=== PATIENT | female | born 1955 | race Caucasian/White ===

== ENCOUNTER 2020-01-30 14:35 | Outpatient (CLI) | payer OTHER ==
[2020-01-30] MEDS ORDERED: OMEP-50 PO (15:30)
[2020-01-30] MEDS ORDERED: IBUP-1985 PO (15:30)
[2020-01-30 16:07] LABS: BASOPHILS # (AUTO) 0.1 X10'3 (0-0.2); BASOPHILS % (AUTO) 0.8 % (0-1); EOSINOPHILS # (AUTO) 0.1 X10'3 (0-0.9); EOSINOPHILS % (AUTO) 0.4 % (0-6); LYMPHOCYTES # (AUTO) 2.6 X10'3 (1.1-4.8); LYMPHOCYTES % (AUTO) 19.2 % (21-51); MEAN CORPUSCULAR HEMOGLOBIN 32.3 PG (27.0-31.0); MEAN CORPUSCULAR HGB CONC 33.6 g/dL (33.0-36.5); MEAN CORPUSCULAR VOLUME 95.9 FL (78-98); MEAN PLATELET VOLUME 9.7 FL (7.4-10.4); MONOCYTES # (AUTO) 0.8 X10'3 (0-0.9); MONOCYTES % (AUTO) 5.9 % (2-12); NEUTROPHILS # (AUTO) 9.9 X10'3 (1.8-7.7); NEUTROPHILS % (AUTO) 73.7 % (42-75); PRE OP HEMATOCRIT 50.1 % (35.0-45.0); PRE OP HEMOGLOBIN 16.8 g/dL (12.0-16.0); PRE OP PLATELET COUNT 296 X10'3 (140-440); RED BLOOD COUNT 5.22 X10'6 (4.20-5.60); RED CELL DISTRIBUTION WIDTH 13.3 % (11.5-14.5)
[2020-01-30 16:16] LABS: ALBUMIN 2.4 G/DL (3.4-5.0); ALBUMIN/GLOBULIN RATIO 0.5 (1.1-1.5); ALKALINE PHOSPHATASE 98 IU/L (46-116); BLOOD UREA NITROGEN 12 MG/DL (7-18); CALCIUM 8.7 MG/DL (8.5-10.1); CHLORIDE 103 MMOL/L (99-107); CREATININE 0.92 MG/DL (0.40-0.90); PRE OP ALT 39 U/L (30-65); PRE OP ANION GAP 6 (8-16); PRE OP AST 16 U/L (10-37); PRE OP BILIRUB, TOTAL 0.3 MG/DL (0.0-1.0); PRE OP GLUCOSE 110 MG/DL (70-104); PRE OP PROTIME 10.3 SECONDS (9.0-12.0); PRE OP SODIUM 141 MMOL/L (135-145); TOTAL CARBON DIOXIDE 32.5 MMOL/L (24-32); TOTAL PROTEIN 7.6 G/DL (6.4-8.2); eGFR 61 ML/MIN
[2020-01-31] MEDS ORDERED: ASPI81TA52 PO (15:32)
[2020-01-31] MEDS ORDERED: DILT120C20 PO (15:32)
== END 2020-01-30 23:59 | disposition home or self-care (01) ==
LOC: PRE-OP 14:35 → EDSTATUS 02-08 10:15
PROVIDERS: ATTEND Orthopaedic Surgery
DX: Z01.812 Encounter for preprocedural laboratory examination (principal); M17.12 Unilateral primary osteoarthritis, left knee; I48.91 Unspecified atrial fibrillation; Z20.828 Contact with and (suspected) exposure to other viral communicable diseases
CPT/HCPCS: 36415; 80053; 85025; 85610; 85730; 87081; 87635; 93005

== ENCOUNTER 2020-01-30 15:56 | Inpatient (IN) | payer BC, OTHER ==
[~2020-01-30] VITALS: Ht 177.8 cm; Wt 121.8 kg
[~2020-01-30 15:56] MED LIST: IBUP-1985 PO; OMEP-50 PO
[2020-01-30] MEDS ORDERED: diltiazem 5mg/ml 5ml inj. IV ONE (16:05)
[2020-01-30] MEDS ORDERED: normal saline 1000ML IV soln IVB ONE (16:10)
[2020-01-30 16:27] LABS: BASOPHILS # (AUTO) 0.1 X10'3 (0-0.2); EOSINOPHILS # (AUTO) 0.1 X10'3 (0-0.9); EOSINOPHILS % (AUTO) 0.7 % (0-6); HEMATOCRIT 49.7 % (35.0-45.0); HEMOGLOBIN 16.6 g/dl (12.0-16.0); LYMPHOCYTES # (AUTO) 2.7 X10'3 (1.1-4.8); LYMPHOCYTES % (AUTO) 18.6 % (21-51); MEAN CORPUSCULAR HGB CONC 33.5 g/dL (33.0-36.5); MEAN CORPUSCULAR VOLUME 95.5 FL (78-98); MEAN PLATELET VOLUME 9.9 FL (7.4-10.4); MONOCYTES % (AUTO) 6.8 % (2-12); NEUTROPHILS # (AUTO) 10.7 X10'3 (1.8-7.7); NEUTROPHILS % (AUTO) 72.9 % (42-75); PLATELET COUNT 304 X10'3 (140-440); RED CELL DISTRIBUTION WIDTH 13.4 % (11.5-14.5); WHITE BLOOD COUNT 14.6 X10'3 (4.5-11.0)
[2020-01-30] MEDS ORDERED: etomidate 2mg/ml inj. IV ONE (16:40)
[2020-01-30] MEDS ORDERED: LORazepam 2 mg/ml vial IV ONE (16:40)
[2020-01-30 16:45] LABS: ALANINE AMINOTRANSFERASE 40 U/L (12-78); ALBUMIN 2.4 G/DL (3.4-5.0); ALBUMIN/GLOBULIN RATIO 0.5 (1.1-1.5); ALKALINE PHOSPHATASE 96 IU/L (46-116); ANION GAP 5 (8-16); ASPARTATE AMINO TRANSFERASE 21 U/L (10-37); BILIRUBIN,TOTAL 0.3 MG/DL (0.1-1.0); BLOOD UREA NITROGEN 13 MG/DL (7-18); BUN/CREATININE RATIO 14.3 (6.6-38.0); CALCIUM 8.7 MG/DL (8.5-10.1); CHLORIDE 103 MMOL/L (99-107); CREATININE 0.91 MG/DL (0.40-0.90); GLUCOSE 109 MG/DL (70-104); POTASSIUM 3.9 MMOL/L (3.5-5.1); SODIUM 140 MMOL/L (135-145); TOTAL CARBON DIOXIDE 32.2 MMOL/L (24-32); TOTAL PROTEIN 7.6 G/DL (6.4-8.2); eGFR 62 ML/MIN
[2020-01-30] MEDS ORDERED: fentaNYL/PF 50MCG/1 ML 2ML syringe IV ONE (17:00)
[2020-01-30] MEDS ORDERED: diltiazem-D5W 125mg/125ml 125 ML IV SCH (17:25)
[2020-01-30] MEDS ORDERED: diltiazem-NS 100mg/100ml 100 ML IV SCH (17:32)
[2020-01-30] MEDS ORDERED: ondansetron/PF 4mg/2ml inj IV ONE (17:40)
[2020-01-30] MEDS ORDERED: ondansetron/PF 4mg/2ml inj IV PRN (19:20)
[2020-01-30] MEDS ORDERED: acetaminophen 325mg tablet PO PRN ×2 (19:20)
[2020-01-30] MEDS ORDERED: HYDROcodone/acetaminophen 5mg/325mg tablet PO PRN (19:20)
[2020-01-30] MEDS ORDERED: magnesium hydroxide 30ml (MOM) UD suspension PO PRN (19:20)
[2020-01-30] MEDS ORDERED: mag hydrox/Alum hydrox/simeth 30ml oral suspension PO PRN (19:20)
[2020-01-30] MEDS ORDERED: HYDROcodone/acetaminophen 10/325mg tab PO PRN (19:20)
[2020-01-30] MEDS ORDERED: morphine 2 MG/ML inj. syringe IV PRN ×2 (19:20)
[2020-01-30] MEDS ORDERED: amiodarone 150mg/dext, iso-os 100 ML IV ONE (19:30)
--- NOTE | 2020-01-30 20:27 | NUR ---
PT HAS ROOM ASSIGNMENT. PT CURRENTLY DENIES ANY SYPTOMS. dILTIAZEM GTT Restarted after being held for 25 minutes (pt up to BR). Dr Luz Maria cervantes MD UPDATED TAHT HR now 120-130 WHILE OFF DILTIAZEM. VERBAL RECEIVED TO DC amioderone gtt at this time AND CONTINUE DILTIAZEM.
[2020-01-30 21:00] VITALS: BP 117/101
[2020-01-30 22:00] VITALS: BP 140/79
[2020-01-31] VITALS (15 sets, daily range): BP systolic 103–133; BP diastolic 57–94
[2020-01-31 05:10] LABS: BASOPHILS # (AUTO) 0.1 X10'3 (0-0.2); BASOPHILS % (AUTO) 0.9 % (0-1); EOSINOPHILS # (AUTO) 0.1 X10'3 (0-0.9); EOSINOPHILS % (AUTO) 0.7 % (0-6); HEMATOCRIT 44.9 % (35.0-45.0); HEMOGLOBIN 14.8 g/dl (12.0-16.0); LYMPHOCYTES # (AUTO) 2.8 X10'3 (1.1-4.8); LYMPHOCYTES % (AUTO) 24.5 % (21-51); MEAN CORPUSCULAR HEMOGLOBIN 32.3 PG (27.0-31.0); MEAN CORPUSCULAR VOLUME 97.8 FL (78-98); MEAN PLATELET VOLUME 10.1 FL (7.4-10.4); MONOCYTES # (AUTO) 0.6 X10'3 (0-0.9); MONOCYTES % (AUTO) 5.2 % (2-12); NEUTROPHILS # (AUTO) 7.7 X10'3 (1.8-7.7); NEUTROPHILS % (AUTO) 68.7 % (42-75); PLATELET COUNT 252 X10'3 (140-440); RED BLOOD COUNT 4.58 X10'6 (4.20-5.60); RED CELL DISTRIBUTION WIDTH 13.9 % (11.5-14.5); WHITE BLOOD COUNT 11.2 X10'3 (4.5-11.0)
[2020-01-31 05:18] LABS: ALBUMIN 2.1 G/DL (3.4-5.0); ANION GAP 4 (8-16); BLOOD UREA NITROGEN 15 MG/DL (7-18); CHLORIDE 107 MMOL/L (99-107); CREATININE 0.79 MG/DL (0.40-0.90); GLUCOSE 106 MG/DL (70-104); POTASSIUM 4.2 MMOL/L (3.5-5.1); SODIUM 142 MMOL/L (135-145); TOTAL CARBON DIOXIDE 31.3 MMOL/L (24-32); eGFR 73 ML/MIN
[2020-01-31] MEDS ORDERED: regadenoson 0.4mg/5ml syringe IV PRN (05:30)
[2020-01-31] MEDS ORDERED: nitroGLYCERIN 0.4mg SUBLingual tab SL PRN ×2 (05:30→05:35)
[2020-01-31] MEDS ORDERED: metoprolol tartrate 1mg/ml inj IV PRN ×2 (05:30→05:35)
[2020-01-31] MEDS ORDERED: aminophylline 250mg/10ml inj. IV PRN ×2 (05:30→05:35)
[2020-01-31] MEDS ORDERED: regadenoson 0.4mg/5ml syringe IV ONE (05:35)
--- NOTE | 2020-01-31 06:21 | NUR ---
Problems reprioritized. Patient report given, questions answered & plan of care reviewed with Jazmine Pearce RN.
--- NOTE | 2020-01-31 06:26 | NUR ---
Patient in room PCU 3025. I have received report from GERMAIN Pantoja and had the opportunity to ask questions and assume patient care. Pt sleeping at change of shift.
[2020-01-31] MEDS ORDERED: furosemide 20 MG/2 ML vial IV SCH (08:00)
[2020-01-31] MEDS ORDERED: enoxaparin 40mg/0.4ml syringe SUBCUT SCH (08:00)
--- NOTE | 2020-01-31 14:10 | NUR ---
Paged Dr Muir PAGER ID: [phone] MESSAGE: Johanne Otero Rm [id number] Manisha has resulted, can pt eat please. Thank you Jazmine Pearce [phone]
[2020-01-31] MEDS ORDERED: DILT120C20 PO (15:32)
[2020-01-31] MEDS ORDERED: ASPI81TA52 PO (15:32)
--- NOTE | 2020-01-31 17:05 | NUR ---
Patient stable for discharge per MD orders. All instructions given, questions answered appropriately. All belongings were collected and sent with patient. Informed pt to follow up with PCP within one week. New RX e-script to [facility]. PIV discontinued, cannula intact. Tele discontinued, telecom manager notified. Pt wheeled to lobby, assisted pt into personal vehicle.
== END 2020-01-31 17:05 | disposition home or self-care (01) | DRG 310 ==
LOC: ER 15:57 → ED HOLD 19:17 → PCU 3S 20:48
PROVIDERS: ADMIT Internal Medicine; ATTEND Family Medicine
PROC: 5A2204Z Restoration of Cardiac Rhythm, Single (ICD-10-PCS; 2020-01-30)
PROC: 4A02XM4 Measurement of Cardiac Total Activity, External Approach (ICD-10-PCS; principal; 2020-01-31)
PROC: 3E073KZ Introduction of Other Diagnostic Substance into Coronary Artery, Percutaneous Approach (ICD-10-PCS; 2020-01-31)
DX: I48.0 Paroxysmal atrial fibrillation (principal); F17.210 Nicotine dependence, cigarettes, uncomplicated; J44.9 Chronic obstructive pulmonary disease, unspecified; K21.9 Gastro-esophageal reflux disease without esophagitis; M19.90 Unspecified osteoarthritis, unspecified site; Z88.5 Allergy status to narcotic agent
CPT/HCPCS: 36415; 71045; 78452; 80048; 80053; 83735; 83880; 84443; 84484; 85025; 85610; 87081; 93005; 93017; 93306; 93308; 94760; 96361; 96374; 96375; 99291; A9500; G0378; J1940; J2060; J2405; J2785; J3010; J3490; J7030

== ENCOUNTER 2020-09-09 16:31 | Inpatient (IN) | payer OTHER ==
[~2020-09-09] VITALS: Ht 177.8 cm; Wt 145.6 kg
[~2020-09-09 16:31] MED LIST changes: +DILT120C94 PO; +ENOX40SY7 SUBCUT; -IBUP-1985 PO
--- NOTE | 2020-09-09 17:09 | NUR ---
PATIENT HAS O2 SATS OF 84% ON ROOM AIR. PATIENT STATES, "THAT IS NORMAL FOR ME AND I DO NOT WANT THAT THING (NC) UP MY NOSE. PATIENT STATES THAT "IF I NEED THE OXYGEN, I WILL PUT IT IN MY MOUTH".
[2020-09-09 17:41] LABS: BASOPHILS # (AUTO) 0.1 X10'3 (0-0.2); BASOPHILS % (AUTO) 0.8 % (0-1); EOSINOPHILS # (AUTO) 0.1 X10'3 (0-0.9); EOSINOPHILS % (AUTO) 0.9 % (0-6); HEMOGLOBIN 13.8 g/dl (12.0-16.0); LYMPHOCYTES # (AUTO) 1.5 X10'3 (1.1-4.8); LYMPHOCYTES % (AUTO) 14.4 % (21-51); MEAN CORPUSCULAR HEMOGLOBIN 29.2 PG (27.0-31.0); MEAN CORPUSCULAR HGB CONC 31.4 g/dL (33.0-36.5); MEAN CORPUSCULAR VOLUME 93.2 FL (78-98); MEAN PLATELET VOLUME 9.3 FL (7.4-10.4); MONOCYTES % (AUTO) 9.5 % (2-12); NEUTROPHILS # (AUTO) 7.9 X10'3 (1.8-7.7); NEUTROPHILS % (AUTO) 74.4 % (42-75); PLATELET COUNT 253 X10'3 (140-440); RED BLOOD COUNT 4.73 X10'6 (4.20-5.60); RED CELL DISTRIBUTION WIDTH 16.5 % (11.5-14.5); WHITE BLOOD COUNT 10.7 X10'3 (4.5-11.0)
[2020-09-09 17:54] LABS: ALANINE AMINOTRANSFERASE 49 U/L (12-78); ALBUMIN 2.1 G/DL (3.4-5.0); ALBUMIN/GLOBULIN RATIO 0.4 (1.1-1.5); ALKALINE PHOSPHATASE 102 IU/L (46-116); ANION GAP -1 (8-16); ASPARTATE AMINO TRANSFERASE 23 U/L (10-37); BILIRUBIN,TOTAL 0.2 MG/DL (0.1-1.0); BLOOD UREA NITROGEN 20 MG/DL (7-18); BUN/CREATININE RATIO 24.7 (6.6-38.0); CHLORIDE 107 MMOL/L (99-107); CREATININE 0.81 MG/DL (0.40-0.90); GLUCOSE 94 MG/DL (70-104); POTASSIUM 3.9 MMOL/L (3.5-5.1); SODIUM 144 MMOL/L (135-145); TOTAL CARBON DIOXIDE 37.8 MMOL/L (24-32); TOTAL PROTEIN 7.1 G/DL (6.4-8.2); eGFR 71 ML/MIN
[2020-09-09] MEDS ORDERED: normal saline 1000ml 1,000 ML IV ONE (18:05)
[2020-09-09] MEDS ORDERED: albuterol 2.5 MG/3 ML nebule NEB ONE (18:05)
[2020-09-09] MEDS ORDERED: diltiazem 5mg/ml 5ml inj. IV ONE (18:05)
[2020-09-09] MEDS ORDERED: iohexol 350MG/ML 100ml bottle IV ONE (18:17)
[2020-09-09] MEDS ORDERED: LORazepam 2 mg/ml vial IV ONE (18:40)
[2020-09-09 19:13] LABS: ABG BASE EXCESS 3.7 mmol/L (-2.0-2.0); ABG HCO3 30.8 mmol/L (22.0-26.0); ABG OXYGEN SATURATION 83.8 % (94-97); ABG PO2 (T) 46.4 mmHg (75.0-100.0); FCOHb 5.8 % (0.0-3.9); FO2Hb 78.9 % (94-97); TOTAL HEMOGLOBIN 14.3 G/dl (12.0-16.0)
[2020-09-09] MEDS ORDERED: furosemide 10 MG/1 ML 10ml inj IV ONE (19:15)
--- NOTE | 2020-09-09 19:41 | NUR ---
I have attempted to CAT scan this patient twice. She refuses to lay flat for CT. Dr Villagomez is aware.
[2020-09-09] MEDS ORDERED: propofol 10mg/ml 20ml vial IV ONE (21:15)
[2020-09-09] MEDS ORDERED: nicotine 21mg patch - 24 hr TD ONE (21:35)
[2020-09-09] MEDS ORDERED: methylPREDNISolone sod succ 125mg/2ml vial IV ONE (21:35)
--- NOTE | 2020-09-09 21:45 | NUR ---
pt to CT on monitor with RT, Dr Villagomez for procedural sedation, pt cannot ashley lying down and signed consent for procedure
--- NOTE | 2020-09-09 22:12 | NUR ---
pt is starting to move extremities, eyes open
[2020-09-09] MEDS ORDERED: amiodarone 150mg/dext, iso-os 100 ML IV ONE (22:20)
--- NOTE | 2020-09-09 22:41 | NUR ---
pt is uncooperative with care, refuses to keep 02 on, have explained risks, pt is insistent on sitting at edge of bed, also explained why she cannot now at this time, pt verbalized "I get it I get it", pt c/o tailbone pain, pt is remaining in bed at this time but refuses to where 02 nasal cannula, "I want the face mask", pt is on face mask per her request
--- NOTE | 2020-09-09 23:04 | NUR ---
report to Mary Lou GROVES
[2020-09-09] MEDS ORDERED: levoFLOXACIN-Levaquin 750MG/D5 150 ML IV ONE (23:20)
[2020-09-09] MEDS ORDERED: magnesium Cl slow-release 64mg tablet PO PRN (23:55)
[2020-09-09] MEDS ORDERED: potassium Cl 20 mEq SR tablet PO PRN ×2 (23:55)
[2020-09-09] MEDS ORDERED: ondansetron/PF 4mg/2ml inj IV PRN (23:55)
[2020-09-09] MEDS ORDERED: morphine 2 MG/ML inj. syringe IV PRN (23:55)
[2020-09-09] MEDS ORDERED: magnesium 4gm in 100ml NS 100 ML IV PRN (23:55)
[2020-09-09] MEDS ORDERED: potassium Cl 40MEQ/1/2NS 520ml 520 ML IV PRN ×2 (23:55)
[2020-09-09] MEDS ORDERED: magnesium 2GM in 50ml NS 50 ML IV PRN (23:55)
[2020-09-09] MEDS ORDERED: acetaminophen 325mg tablet PO PRN ×2 (23:55)
[2020-09-10] VITALS (8 sets, daily range): BP systolic 103–147; BP diastolic 45–93
[2020-09-10] MEDS ORDERED: diltiazem-NS 100mg/100ml 100 ML IV SCH (00:10)
[2020-09-10] MEDS ORDERED: regadenoson 0.4mg/5ml syringe IV PRN (00:15)
[2020-09-10] MEDS ORDERED: nitroGLYCERIN 0.4mg SUBLingual tab SL PRN (00:15)
[2020-09-10] MEDS ORDERED: metoprolol tartrate 1mg/ml inj IV PRN (00:15)
[2020-09-10] MEDS ORDERED: aminophylline 250mg/10ml inj. IV PRN (00:15)
--- NOTE | 2020-09-10 02:33 | NUR ---
PAGER ID: [phone] MESSAGE: [phone] CAMACHO RASMUSSEN, patients lungs fine crackles bilateral , +3 edema. Requesting another dose of Lasix as well as a rodriguez. thank you Ady holt pcu [phone]
--- NOTE | 2020-09-10 02:35 | NUR ---
Spoke to dr. elias in regards to orders for indwelling catheter as well as additional Lasix order. patient has mutilple wounds, including in groin , patients hr increases to 150s when adulating, while o2 sats decrease to 80s% . patient also has fine crackles bilaterally as well as +3 edema in ble. patient is on cardizem gtt at this time. per md , patient was examined by md herself and sees no indications for any of these orders.
--- NOTE | 2020-09-10 04:44 | NUR ---
although patient is completely aware of situation being alert and orientated , patient decided on calling , even though call melony hernandez
--- NOTE | 2020-09-10 04:45 | NUR ---
continuation of previous note call ty clipped to gown . with in reach
[2020-09-10] MEDS: albuterol 2.5 MG/3 ML nebule NEB SCH ×4 (05:17→20:19)
[2020-09-10] MEDS: diltiazem-NS 100mg/100ml 100 ML IV SCH ×2 (06:00→16:00)
[2020-09-10 07:04] LABS: ALANINE AMINOTRANSFERASE 59 U/L (12-78); ALBUMIN 2.2 G/DL (3.4-5.0); ALBUMIN/GLOBULIN RATIO 0.4 (1.1-1.5); ALKALINE PHOSPHATASE 110 IU/L (46-116); ANION GAP 3 (8-16); ASPARTATE AMINO TRANSFERASE 43 U/L (10-37); BILIRUBIN,TOTAL 0.2 MG/DL (0.1-1.0); BLOOD UREA NITROGEN 19 MG/DL (7-18); BUN/CREATININE RATIO 22.6 (6.6-38.0); CALCIUM 8.1 MG/DL (8.5-10.1); CHLORIDE 104 MMOL/L (99-107); CREATININE 0.84 MG/DL (0.40-0.90); GLUCOSE 145 MG/DL (70-104); POTASSIUM 4.6 MMOL/L (3.5-5.1); SODIUM 143 MMOL/L (135-145); TOTAL CARBON DIOXIDE 35.7 MMOL/L (24-32); TOTAL PROTEIN 7.7 G/DL (6.4-8.2); eGFR 68 ML/MIN
[2020-09-10 07:07] LABS: MAGNESIUM 2.3 MG/DL (1.5-2.4)
[2020-09-10 07:11] LABS: BASOPHILS % (AUTO) 0.2 % (0-1); EOSINOPHILS % (AUTO) 0 % (0-6); HEMATOCRIT 44.7 % (35.0-45.0); HEMOGLOBIN 14.2 g/dl (12.0-16.0); LYMPHOCYTES # (AUTO) 0.5 X10'3 (1.1-4.8); LYMPHOCYTES % (AUTO) 3.6 % (21-51); MEAN CORPUSCULAR HEMOGLOBIN 29.7 PG (27.0-31.0); MEAN CORPUSCULAR HGB CONC 31.8 g/dL (33.0-36.5); MEAN CORPUSCULAR VOLUME 93.6 FL (78-98); MEAN PLATELET VOLUME 9.6 FL (7.4-10.4); MONOCYTES # (AUTO) 0.1 X10'3 (0-0.9); MONOCYTES % (AUTO) 0.9 % (2-12); NEUTROPHILS # (AUTO) 12.2 X10'3 (1.8-7.7); NEUTROPHILS % (AUTO) 95.3 % (42-75); PLATELET COUNT 265 X10'3 (140-440); RED BLOOD COUNT 4.78 X10'6 (4.20-5.60); RED CELL DISTRIBUTION WIDTH 16.4 % (11.5-14.5); WHITE BLOOD COUNT 12.8 X10'3 (4.5-11.0)
[2020-09-10] MEDS: K and/or MAG REPLACEMENT MC SCH ×2 (08:00→20:00)
[2020-09-10] MEDS ORDERED: CefTRIAXone 2gm/D5W 50ml BAG 50 ML IV SCH (08:00)
[2020-09-10] MEDS: pantoprazole 40mg Tablet.DR PO SCH (08:48)
[2020-09-10] MEDS: furosemide 40mg/4ml inj IV SCH ×2 (08:49→20:10)
[2020-09-10] MEDS: docusate sod 100mg capsule PO SCH ×2 (08:49→20:14)
[2020-09-10] MEDS: nicotine 14mg patch - 24hr TD SCH (08:50)
[2020-09-10] MEDS: heparin, porcine 5000 units/ml vial SQ SCH ×2 (08:53→20:19)
[2020-09-10] MEDS ORDERED: ALBU2.5V10 NEB (09:34)
--- NOTE | 2020-09-10 12:42 | NUR ---
Wound care note: Wound care was asked to see patient regarding her skin history of psoriasis with BLE cellulitis. Patient has no wound care needs at this time. I offered to order Eucerin plus lotion for BLE due to cellulitis. She does not want any other treatment. States she has had this for over 30 years and nothing helps.
[2020-09-10] MEDS ORDERED: emollient combination-Eucerin 250 ML LOTION TP SCH (12:45)
[2020-09-10] MEDS: diltiazem CD 120mg capsule (once-daily) PO SCH (13:17)
--- NOTE | 2020-09-10 15:23 | NUR ---
Pt continuously falls asleep with her o2 out of her mouth. Pt found on RA with a SpO2 of 76%. Placed pts O2 back in her mouth at 3lpm and sats recovered to 94%. Pt educated on importance of wearing her O2. Addendum: 09/10/20 at 1525 by Eden Tripp RT Amended: Links added.
--- NOTE | 2020-09-10 18:30 | NUR ---
Patient in room PCU 3017. I have received report from MANDEEP GROVES and had the opportunity to ask questions and assume patient care.
[2020-09-10] MEDS: levoFLOXACIN-Levaquin 500mg/D5 100 ML IV SCH (19:55)
[2020-09-10] MEDS: lactobacillus rhamnosus 10,000 MMU CELLS/CAPSULE PO SCH (20:14)
[2020-09-10] MEDS: HYDROcodone/acetaminophen 5mg/325mg tablet PO PRN (20:15)
[2020-09-11] MEDS: diltiazem-NS 100mg/100ml 100 ML IV SCH ×2 (01:39→12:00)
[2020-09-11] MEDS: HYDROcodone/acetaminophen 5mg/325mg tablet PO PRN (01:50)
[2020-09-11 02:00] VITALS: BP 92/64
[2020-09-11] MEDS: albuterol 2.5 MG/3 ML nebule NEB SCH ×4 (02:00→19:25)
--- NOTE | 2020-09-11 06:12 | NUR ---
Problems reprioritized. Patient report given, questions answered & plan of care reviewed with MANDEEP GROVES.
[2020-09-11] MEDS: furosemide 40mg/4ml inj IV SCH ×2 (07:50→20:27)
[2020-09-11 07:51] LABS: ALANINE AMINOTRANSFERASE 51 U/L (12-78); ALBUMIN 2.1 G/DL (3.4-5.0); ALBUMIN/GLOBULIN RATIO 0.4 (1.1-1.5); ALKALINE PHOSPHATASE 96 IU/L (46-116); ANION GAP -1 (8-16); ASPARTATE AMINO TRANSFERASE 25 U/L (10-37); BILIRUBIN,TOTAL 0.2 MG/DL (0.1-1.0); BLOOD UREA NITROGEN 24 MG/DL (7-18); BUN/CREATININE RATIO 23.8 (6.6-38.0); CHLORIDE 101 MMOL/L (99-107); CREATININE 1.01 MG/DL (0.40-0.90); GLUCOSE 101 MG/DL (70-104); MAGNESIUM 2.2 MG/DL (1.5-2.4); POTASSIUM 4.4 MMOL/L (3.5-5.1); SODIUM 140 MMOL/L (135-145); TOTAL CARBON DIOXIDE 39.6 MMOL/L (24-32); eGFR 55 ML/MIN
[2020-09-11] MEDS: lactobacillus rhamnosus 10,000 MMU CELLS/CAPSULE PO SCH ×2 (07:51→20:26)
[2020-09-11] MEDS: docusate sod 100mg capsule PO SCH ×2 (07:51→20:26)
[2020-09-11] MEDS: heparin, porcine 5000 units/ml vial SQ SCH (07:51)
[2020-09-11] MEDS: diltiazem CD 120mg capsule (once-daily) PO SCH (07:51)
[2020-09-11] MEDS: pantoprazole 40mg Tablet.DR PO SCH (07:51)
[2020-09-11 07:54] LABS: BASOPHILS % (AUTO) 0.2 % (0-1); EOSINOPHILS % (AUTO) 0.2 % (0-6); HEMATOCRIT 42.4 % (35.0-45.0); HEMOGLOBIN 13.2 g/dl (12.0-16.0); LYMPHOCYTES # (AUTO) 1.7 X10'3 (1.1-4.8); LYMPHOCYTES % (AUTO) 14.5 % (21-51); MEAN CORPUSCULAR HEMOGLOBIN 29.2 PG (27.0-31.0); MEAN CORPUSCULAR HGB CONC 31.1 g/dL (33.0-36.5); MEAN CORPUSCULAR VOLUME 93.7 FL (78-98); MEAN PLATELET VOLUME 9.5 FL (7.4-10.4); MONOCYTES # (AUTO) 1.1 X10'3 (0-0.9); MONOCYTES % (AUTO) 9.7 % (2-12); NEUTROPHILS # (AUTO) 8.8 X10'3 (1.8-7.7); NEUTROPHILS % (AUTO) 75.4 % (42-75); PLATELET COUNT 274 X10'3 (140-440); RED BLOOD COUNT 4.53 X10'6 (4.20-5.60); WHITE BLOOD COUNT 11.7 X10'3 (4.5-11.0)
[2020-09-11] MEDS: nicotine 14mg patch - 24hr TD SCH (07:55)
[2020-09-11] MEDS: mineral oil/petrolatum, white cream 113gm jar TP SCH (08:00)
[2020-09-11] MEDS: K and/or MAG REPLACEMENT MC SCH ×2 (08:00→20:00)
[2020-09-11 09:24] VITALS: BP 121/70
[2020-09-11 13:31] VITALS: BP 123/81
[2020-09-11 15:00] VITALS: BP 102/60
[2020-09-11] MEDS ORDERED: apixaban 5mg tablet PO ONE (16:30)
[2020-09-11 18:00] VITALS: BP 102/58
--- NOTE | 2020-09-11 18:20 | NUR ---
Patient in room PCU 3017. I have received report from GERMAIN KAUFMAN and had the opportunity to ask questions and assume patient care.
[2020-09-11] MEDS: apixaban 5mg tablet PO SCH (20:26)
[2020-09-11] MEDS: levoFLOXACIN-Levaquin 500mg/D5 100 ML IV SCH (20:48)
[2020-09-11 22:00] VITALS: BP 113/63
[2020-09-12 02:00] VITALS: BP 107/47
[2020-09-12] MEDS: albuterol 2.5 MG/3 ML nebule NEB SCH ×2 (02:23→09:40)
[2020-09-12] MEDS: HYDROcodone/acetaminophen 5mg/325mg tablet PO PRN ×2 (02:40→07:57)
--- NOTE | 2020-09-12 06:11 | NUR ---
Problems reprioritized. Patient report given, questions answered & plan of care reviewed with GERMAIN ARELLANO.
--- NOTE | 2020-09-12 06:37 | NUR ---
Patient in room PCU 3017. I have received report from Francisco GROVES and had the opportunity to ask questions and assume patient care.
--- NOTE | 2020-09-12 06:39 | NUR ---
Patient in room PCU 3017. I have received report from Rebekah Danielle and had the opportunity to ask questions and assume patient care.
[2020-09-12 07:00] VITALS: BP 129/66
[2020-09-12 07:24] LABS: BASOPHILS % (AUTO) 0.4 % (0-1); EOSINOPHILS # (AUTO) 0.1 X10'3 (0-0.9); EOSINOPHILS % (AUTO) 0.6 % (0-6); HEMATOCRIT 42.7 % (35.0-45.0); HEMOGLOBIN 13.5 g/dl (12.0-16.0); LYMPHOCYTES # (AUTO) 1.7 X10'3 (1.1-4.8); MEAN CORPUSCULAR HEMOGLOBIN 29.3 PG (27.0-31.0); MEAN CORPUSCULAR HGB CONC 31.5 g/dL (33.0-36.5); MEAN CORPUSCULAR VOLUME 93.2 FL (78-98); MEAN PLATELET VOLUME 9.3 FL (7.4-10.4); MONOCYTES # (AUTO) 0.9 X10'3 (0-0.9); MONOCYTES % (AUTO) 9.4 % (2-12); NEUTROPHILS % (AUTO) 71.6 % (42-75); PLATELET COUNT 254 X10'3 (140-440); RED BLOOD COUNT 4.58 X10'6 (4.20-5.60); RED CELL DISTRIBUTION WIDTH 15.8 % (11.5-14.5); WHITE BLOOD COUNT 9.7 X10'3 (4.5-11.0)
[2020-09-12 07:32] LABS: ALANINE AMINOTRANSFERASE 47 U/L (12-78); ALBUMIN 2.1 G/DL (3.4-5.0); ALBUMIN/GLOBULIN RATIO 0.4 (1.1-1.5); ALKALINE PHOSPHATASE 89 IU/L (46-116); ANION GAP 2 (8-16); ASPARTATE AMINO TRANSFERASE 23 U/L (10-37); BILIRUBIN,TOTAL 0.2 MG/DL (0.1-1.0); BLOOD UREA NITROGEN 24 MG/DL (7-18); BUN/CREATININE RATIO 26.4 (6.6-38.0); CALCIUM 7.9 MG/DL (8.5-10.1); CHLORIDE 99 MMOL/L (99-107); CREATININE 0.91 MG/DL (0.40-0.90); GLUCOSE 93 MG/DL (70-104); MAGNESIUM 2.2 MG/DL (1.5-2.4); POTASSIUM 3.8 MMOL/L (3.5-5.1); SODIUM 145 MMOL/L (135-145); TOTAL PROTEIN 6.8 G/DL (6.4-8.2); eGFR 62 ML/MIN
[2020-09-12 07:42] LABS: TOTAL CARBON DIOXIDE 43.9 MMOL/L (24-32)
[2020-09-12] MEDS: lactobacillus rhamnosus 10,000 MMU CELLS/CAPSULE PO SCH (07:55)
[2020-09-12] MEDS: nicotine 14mg patch - 24hr TD SCH (07:57)
[2020-09-12] MEDS: diltiazem CD 120mg capsule (once-daily) PO SCH (07:58)
[2020-09-12] MEDS: docusate sod 100mg capsule PO SCH (07:58)
[2020-09-12] MEDS: apixaban 5mg tablet PO SCH (07:58)
[2020-09-12] MEDS: pantoprazole 40mg Tablet.DR PO SCH (07:58)
[2020-09-12] MEDS: K and/or MAG REPLACEMENT MC SCH (08:00)
[2020-09-12] MEDS: mineral oil/petrolatum, white cream 113gm jar TP SCH (08:00)
[2020-09-12] MEDS: furosemide 40mg/4ml inj IV SCH (08:07)
--- NOTE | 2020-09-12 08:22 | NUR ---
O2 Sat at rest on room air:_83__% If below 89%: Recovery O2 Sat at rest on __2_LPM: 92% via___nasal cannula (mask/nasal cannula, etc..) No further documentation is necessary. If O2 Sat did not drop below 89% on room air,ambulate patient on room air. O2 Sat while ambulating on room air:___% Recovery O2 Sat while ambulating on ___LPM:___% No further documentation is necessary. If patient does not drop below 89% while ambulating, he/she does not qualify for home O2.
[2020-09-12] MEDS ORDERED: FURO40TA4 PO (08:51)
[2020-09-12] MEDS ORDERED: DILT-36 PO (08:51)
[2020-09-12] MEDS ORDERED: LEVO750T46 PO (08:51)
[2020-09-12 11:00] VITALS: BP 108/67
[2020-09-12] MEDS ORDERED: APIX5TAB3 PO (11:51)
--- NOTE | 2020-09-12 13:51 | NUR ---
Patient stable for discharge per MD order, all discharge instructions reviewed with patient and all questions answered. New prescriptions faxed to pharmacy. PIV discontinued, cannula intact. Telemetry discontinued, radiotelephone operator notified. All belongings collected and sent with patient. Patient picked up by family member in private vehicle, wheeled to lobby by staff.
[2020-09-12] MEDS ORDERED: levoFLOXACIN 500mg tablet PO SCH (20:00)
== END 2020-09-12 13:40 | disposition home or self-care (01) | DRG 291 ==
LOC: ER 16:31 → ED HOLD 23:51 → PCU 3S 09-10 02:00
PROVIDERS: ADMIT Internal Medicine; ATTEND Internal Medicine
PROC: B2211ZZ Computerized Tomography (CT Scan) of Multiple Coronary Arteries using Low Osmolar Contrast (ICD-10-PCS; principal; 2020-09-09)
PROC: B2261ZZ Computerized Tomography (CT Scan) of Right and Left Heart using Low Osmolar Contrast (ICD-10-PCS; 2020-09-09)
DX: I11.0 Hypertensive heart disease with heart failure (principal); J96.01 Acute respiratory failure with hypoxia; E43 Unspecified severe protein-calorie malnutrition; Z68.42 Body mass index [BMI] 45.0-49.9, adult; J44.1 Chronic obstructive pulmonary disease with (acute) exacerbation; I31.3 Pericardial effusion (noninflammatory); M19.90 Unspecified osteoarthritis, unspecified site; F17.210 Nicotine dependence, cigarettes, uncomplicated; E66.01 Morbid (severe) obesity due to excess calories; Z88.1 Allergy status to other antibiotic agents; Z88.8 Allergy status to other drugs, medicaments and biological substances; R91.8 Other nonspecific abnormal finding of lung field; I48.0 Paroxysmal atrial fibrillation; I50.23 Acute on chronic systolic (congestive) heart failure; I27.20 Pulmonary hypertension, unspecified; Z79.899 Other long term (current) drug therapy; Z79.01 Long term (current) use of anticoagulants; Z96.659 Presence of unspecified artificial knee joint
CPT/HCPCS: 36415; 36600; 70450; 71045; 71275; 80053; 82803; 83735; 83880; 84484; 85018; 85025; 87081; 93005; 93306; 94640; 94760; 94799; 96365; 96375; 97116; 97162; 97530; 97535; 99285; G0378; J1644; J1940; J1956; J2060; J2704; J2930; J3490; Q9967